=== PATIENT | male | born 1995 | race African-American/Black ===

== ENCOUNTER 2017-12-06 09:13 | Emergency (ER) | payer SELFPAY ==
[~2017-12-06] VITALS: Ht 182.9 cm; Wt 82.0 kg
[~2017-12-06 09:13] MED LIST: CLIN150 PO
[2017-12-06 09:16] VITALS: BP 162/75; PULSE 82; RESP 17; TEMP 97.6; O2SAT 100
[2017-12-06] MEDS ORDERED: LORazepam 1 MG TAB PO ONE (09:45)
[2017-12-06] MEDS ORDERED: SODIUM CHLORIDE 0.9% FLUSH 10 ML FLUSH IVF PRN (09:45)
--- NOTE | 2017-12-06 09:50 | PD ---
HPI Chief Complaint: Syncope/Near-Syncope Time Seen by Provider: 09:25 Travel History International Travel<30 days: No Contact w/Intl Traveler<30days: No Traveled to known affect area: No History of Present Illness HPI This patient had an episode at home witnessed by mother. He became rigid and had some shaking and fell over onto the sofa. She is concerned that he had a seizure. Spell is very suspicious for 1. He has history of seizures until the age of 5 and has not had one since. He is no longer on seizure medications. He had meningitis as a young child. Currently he woke up this morning feeling fine. He said no vomiting or diarrhea or fever or really any complaints. He denies alcohol or drug abuse. He felt lightheaded prior to the event. He did not of headache or chest pain. Mother reports that he was confused and not saying much afterwards for about the next 15 minutes. He now is awake and talking but feels drowsy. Symptoms severity was moderate. No alleviating factors. No exacerbating factors. PFSH Past Medical History ADHD: Yes (ADHD) Asthma: Yes Weight (Kg): 3 Cancer: No Cardiovascular Problems: No Diabetes: No Diminished Hearing: No Headaches: Yes (pt has frequent headaches) Neurologic: Yes (MENINGITIS ) Psychiatric: Yes Immunizations Current: Yes Migraines: No Seizures: Yes (hx of seizures. last seizure in 2004) Thyroid Disease: No Ulcer: No Tetanus Vaccination: < 5 Years Past Surgical History Appendectomy: Yes Section: Yes Cholecystectomy: No Other Surgery: No Social History Alcohol Use: No Tobacco Use: No Substance Use: No Allergies-Medications (Allergen,Severity, Reaction): Coded Allergies: lamotrigine (Unverified Allergy, Severe, RASH, 12/06/17) penicillin G (Unverified Allergy, Severe, RASH, 12/06/17) *MDRO Multi-Drug Resistant Organism (Unverified Adverse Reaction, Unknown , 12/06/17) MRSA groin wound 12/05/2014. Reported Meds & Prescriptions Reported Meds & Active Scripts Active Review of Systems General / Constitutional: No: Fever Eyes: No: Visual changes HENT: Positive: Lightheadedness, No: Headaches Cardiovascular: No: Chest Pain or Discomfort Respiratory: No: Shortness of Breath Gastrointestinal: No: Abdominal Pain Genitourinary: No: Dysuria Musculoskeletal: No: Pain Skin: No Rash Neurologic: Positive: Change in Mentation, Seizures, No: Weakness Psychiatric: No: Depression Endocrine: No: Polydipsia Hematologic/Lymphatic: No: Easy Bruising Physical Exam Narrative GENERAL: Well-nourished, well-developed patient in no apparent distress. SKIN: Focused skin assessment reveals no rash and nodules. Skin is Warm and dry. HEAD: Atraumatic. Normocephalic. EYES: Pupils equal and round. No scleral icterus. No injection or drainage. ENT: No nasal bleeding or discharge. Mucous membranes pink and moist. No tongue injury. NECK: Trachea midline. No JVD. CARDIOVASCULAR: Regular rate and rhythm. No murmur appreciated. RESPIRATORY: No accessory muscle use. Clear to auscultation. Breath sounds equal bilaterally. GASTROINTESTINAL: Abdomen soft, non-tender, nondistended. Hepatic and splenic margins not palpable. MUSCULOSKELETAL: No obvious deformities. No clubbing. No cyanosis. No edema. NEUROLOGICAL: Awake but drowsy. No obvious cranial nerve deficits. Motor grossly within normal limits. Normal speech. PSYCHIATRIC: Appropriate mood and affect; insight and judgment slightly reduced . Data Data Last Documented VS Vital Signs Date Time Temp Pulse Resp B/P (MAP) Pulse Ox O2 Delivery O2 Flow Rate FiO2 12/06/17 11:47 68 18 120/62 (81) 98 Room Air 12/06/17 09:16 97.6 Orders Orders Complete Blood Count With Diff (12/06/17 09:38) Basic Metabolic Panel (Bmp) (12/06/17 09:38) Drug Screen, Random Urine (12/06/17 09:38) Electrocardiogram (12/06/17 ) Iv Access Insert/Monitor (12/06/17 09:38) Sodium Chloride 0.9% Flush (Ns Flush) (12/06/17 09:45) Lorazepam (Ativan) (12/06/17 09:45) Labs Laboratory Tests Test 12/06/17 09:40 12/06/17 09:50 White Blood Count 6.5 TH/MM3 Red Blood Count 5.58 MIL/MM3 Hemoglobin 15.0 GM/DL Hematocrit 44.4 % Mean Corpuscular Volume 79.4 FL Mean Corpuscular Hemoglobin 26.9 PG Mean Corpuscular Hemoglobin Concent 33.8 % Red Cell Distribution Width 14.1 % Platelet Count 202 TH/MM3 Mean Platelet Volume 8.5 FL Neutrophils (%) (Auto) 44.1 % Lymphocytes (%) (Auto) 44.3 % Monocytes (%) (Auto) 6.4 % Eosinophils (%) (Auto) 4.5 % Basophils (%) (Auto) 0.7 % Neutrophils # (Auto) 2.9 TH/MM3 Lymphocytes # (Auto) 2.9 TH/MM3 Monocytes # (Auto) 0.4 TH/MM3 Eosinophils # (Auto) 0.3 TH/MM3 Basophils # (Auto) 0.0 TH/MM3 CBC Comment DIFF FINAL Differential Comment Blood Urea Nitrogen 9 MG/DL Creatinine 0.96 MG/DL Random Glucose 90 MG/DL Calcium Level 8.7 MG/DL Sodium Level 142 MEQ/L Potassium Level 3.8 MEQ/L Chloride Level 107 MEQ/L Carbon Dioxide Level 31.6 MEQ/L Anion Gap 3 MEQ/L Estimat Glomerular Filtration Rate 120 ML/MIN Urine Opiates Screen NEG Urine Barbiturates Screen NEG Urine Amphetamines Screen NEG Urine Benzodiazepines Screen NEG Urine Cocaine Screen NEG Urine Cannabinoids Screen NEG MDM Medical Decision Making Medical Screen Exam Complete: Yes Emergency Medical Condition: Yes Medical Record Reviewed: Yes Differential Diagnosis Recurrence of seizure, vasovagal episode, cardiac arrhythmia Narrative Course I have reviewed the patient's electronic medical record. I reviewed his EKG which shows sinus rhythm without ectopy Patient is neurologically intact but has some global lethargy suggesting postictal state Description by mother suggests a recurrence of seizure This is not definitive however I'm observing him for while. Labs have been sent. I gave him 1 dose of Ativan 1 mg oral He will definitely need outpatient neurology follow-up Not going to load him on seizure medications based on this one time possible recurrence. Discussed with patient and mother that should he have a second event in the near future he will need to be put back on medication. I observed him for almost 3 hours and he is now awake and alert and chatting and feels fine. There is been no recurrence. Discussed with him and mother at bedside. Recommend no driving or swimming until he discusses this with neurologist CBC and metabolic profiles are normal and tox screen is negative Diagnosis Primary Impression: Seizure Additional Instructions: Follow up with neurologist Recommend no driving or swimming until neurologist clears you for these activities Med/Other Pt SpecificInfo: Other Disposition: 01 DISCHARGE HOME Condition: Stable Silver Smithew J. MD Dec 06, 2017 09:50
[2017-12-06 09:59] LABS: AUTOMATED NEUTROPHIL # 2.9 TH/MM3 (1.8-7.7); BASOPHIL % 0.7 % (0.0-2.0); EOSINOPHIL # 0.3 TH/MM3 (0-0.4); EOSINOPHIL % 4.5 % (0.0-4.0); HEMATOCRIT 44.4 % (39.0-51.0); LYMPH % 44.3 % (9.0-44.0); LYMPHOCYTE # 2.9 TH/MM3 (1.0-4.8); MEAN CELL VOLUME 79.4 FL (80.0-100.0); MEAN CORPUSCULAR HEMOGLOBIN 26.9 PG (27.0-34.0); MEAN CORPUSCULAR HGB CONC 33.8 % (32.0-36.0); MEAN PLATELET VOLUME 8.5 FL (7.0-11.0); MONO % 6.4 % (0.0-8.0); MONOCYTE # 0.4 TH/MM3 (0-0.9); NEUT % 44.1 % (16.0-70.0); PLATELET COUNT 202 TH/MM3 (150-450); RED BLOOD COUNT 5.58 MIL/MM3 (4.50-5.90); RED CELL DISTRIBUTION WIDTH 14.1 % (11.6-17.2); WHITE BLOOD COUNT 6.5 TH/MM3 (4.0-11.0)
[2017-12-06 10:30] VITALS: BP 124/76; PULSE 74; RESP 18; O2SAT 100
[2017-12-06 10:33] LABS: BICARBONATE 31.6 MEQ/L (21.0-32.0); CALCIUM 8.7 MG/DL (8.5-10.1); CREATININE 0.96 MG/DL (0.60-1.30)
[2017-12-06 11:47] VITALS: BP 120/62; PULSE 68; RESP 18; O2SAT 98
--- NOTE | 2017-12-06 14:16 | EKG ---
Date Performed: 12/06/2017 Time Performed: 09:30:36 PTAGE: 21 years EKG: Sinus rhythm NONSPECIFIC T-WAVE ABNORMALITY BORDERLINE ECG Compared to PREVIOUS TRACING , minor nonspecific T-wave changes are present in the anterior leads. [place] EVIOUS TRACIN02/28/2009 13.45 DOCTOR: Hira Hartmann Interpretating Date/Time 12/06/2017 14:15:05
== END 2017-12-06 12:39 | disposition home or self-care (01) ==
LOC: NEPD 09:13
DX: R56.9 Unspecified convulsions (principal); F90.9 Attention-deficit hyperactivity disorder, unspecified type; J45.909 Unspecified asthma, uncomplicated
CPT/HCPCS: 80048; 80307; 85025; 93005